=== PATIENT | male | born 1965 | race African-American/Black ===

== ENCOUNTER 2023-12-03 19:36 | Inpatient (IN) | payer SELFPAY ==
[~2023-12-03] VITALS: Ht 175.3 cm; Wt 61.7 kg
[~2023-12-03 19:36] MED LIST: ALBU18HF2 IH; FLUT1DIS3 INH; IBUP-2030 PO; P20 MT
[2023-12-03] MEDS: METHYLPREDNISOLONE SOD SUCC 125MG/2ML (ACT-O-VIAL) IV STA (20:33)
[2023-12-03 20:37] LABS: BASOPHILS % 0.6 % (0.0-2.0); CHLORIDE 110 mEq/L (98-107); EOSINOPHILS % 5.7 % (0.0-5.0); HEMATOCRIT. 33.8 % (42.0-52.0); LYMPHOCYTES % 30.4 % (20.0-50.0); MEAN CORPUSCULAR HEMOGLOBIN 31.2 pg (28.0-32.0); MEAN CORPUSCULAR HGB CONC 32.5 g/dL (31.0-37.0); MEAN CORPUSCULAR VOLUME 96.1 fL (80.0-94.0); MEAN PLATELET VOLUME 8.3 fl (7.4-10.4); MONOCYTES % 4.4 % (2.0-8.0); NEUTROPHILS % 58.9 % (40.0-76.0); PLATELET 209 x1000/uL (130-400); POTASSIUM 3.9 mEq/L (3.5-5.1); RED BLOOD CELL COUNT 3.52 mill/uL (4.7-6.1); RED CELL DISTRIBUTION WIDTH 14.7 % (11.6-14.6); SODIUM 142 mEq/L (136-145); WHITE BLOOD COUNT 5.4 x1000/uL (4.5-11.0)
[2023-12-03 20:38] LABS: CARBON DIOXIDE 28 mEq/L (21-32)
[2023-12-03 20:39] LABS: CALCIUM 8.4 mg/dL (8.7-10.4)
[2023-12-03 20:43] LABS: CREATININE 0.9 mg/dL (0.6-1.3); GLUCOSE 155 mg/dL (70-105)
[2023-12-03 20:44] LABS: UREA NITROGEN BLOOD 17 mg/dL (9-23)
[2023-12-03 20:47] LABS: TROPONIN I HIGH SENSITIVITY 75 ng/L (3.0-53)
[2023-12-03 20:54] VITALS: PULSE 91; RESP 17; O2SAT 98
[2023-12-03] MEDS: IPRATROPIUM BROMIDE (0.02%) 0.5MG/2.5ML NEB HHN STA (20:54)
[2023-12-03] MEDS: ALBUTEROL (0.083%) 2.5MG/3ML NEB HHN SCH (20:54)
[2023-12-03 22:10] VITALS: PULSE 78; RESP 15; O2SAT 97
[2023-12-03 22:44] VITALS: PULSE 104; RESP 16; O2SAT 93
[2023-12-03 22:58] LABS: TROPONIN I HIGH SENSITIVITY 92 ng/L (3.0-53)
[2023-12-04] VITALS (7 sets, daily range): BP systolic 109–135; BP diastolic 74–91; PULSE 81–99; RESP 19–21; TEMP 97–98.9
[2023-12-04] MEDS ORDERED: IPRATROPIUM/ALBUTEROL 0.5-3(2.5)MG/3ML NEB HHN PRN (01:30)
[2023-12-04] MEDS ORDERED: ACETAMINOPHEN 325MG TABLET PO PRN (01:30)
[2023-12-04] MEDS ORDERED: HYDROCODONE/ACETAMINOPHEN 5/325MG TABLET PO PRN (01:30)
[2023-12-04] MEDS ORDERED: CLONIDINE 0.1MG TABLET PO PRN (01:30)
[2023-12-04] MEDS: METHYLPREDNISOLONE SOD SUCC 40MG/ML (ACT-O-VIAL) IV SCH (02:48)
[2023-12-04 07:10] LABS: HEMATOCRIT 37.8 % (42.0-52.0); HEMOGLOBIN 12.5 g/dL (14.0-18.0); MEAN CORPUSCULAR HEMOGLOBIN 31.2 pg (28.0-32.0); MEAN CORPUSCULAR HGB CONC 33.1 g/dL (31.0-37.0); MEAN CORPUSCULAR VOLUME 94.5 fL (80.0-94.0); PLATELET 220 x1000/uL (130-400); RED CELL DISTRIBUTION WIDTH 14.6 % (11.6-14.6); WHITE BLOOD COUNT 2.8 x1000/uL (4.5-11.0)
[2023-12-04 07:16] LABS: CHLORIDE 108 mEq/L (98-107); POTASSIUM 4.4 mEq/L (3.5-5.1); SODIUM 141 mEq/L (136-145)
[2023-12-04 07:18] LABS: CALCIUM 8.9 mg/dL (8.7-10.4)
[2023-12-04 07:22] LABS: CREATININE 0.8 mg/dL (0.6-1.3); GLUCOSE 124 mg/dL (70-105)
[2023-12-04 07:23] LABS: UREA NITROGEN BLOOD 15 mg/dL (9-23)
[2023-12-04 07:28] LABS: CARBON DIOXIDE 24 mEq/L (21-32)
[2023-12-04 07:49] LABS: CREATINE KINASE MB FRACTION 6.4 ng/mL (0.5-3.6)
[2023-12-04 07:50] LABS: CREATINE KINASE 248 IU/L (46-171); TROPONIN I HIGH SENSITIVITY 50 ng/L (3.0-53)
[2023-12-04 08:06] LABS: HEPATITIS B SURFACE ANTIGEN NEGATIVE (Negative)
[2023-12-04 08:27] LABS: HEPATITIS C AB NON REACTIVE (Neg) (Negative)
[2023-12-04] MEDS: BUDESONIDE 0.5MG/2ML NEB HHN SCH (09:05)
[2023-12-04] MEDS: ASPIRIN 81MG TABLET PO SCH (09:26)
[2023-12-04] MEDS: FAMOTIDINE 20MG/2ML VIAL IV SCH (09:26)
[2023-12-04] MEDS: PANTOPRAZOLE SODIUM 40 MG/VIAL IV SCH (09:26)
[2023-12-04] MEDS: NICOTINE 14MG PATCH TD SCH (09:28)
[2023-12-04] MEDS: ENOXAPARIN 40MG/0.4ML SYR SUBCUT SCH (09:29)
[2023-12-04 09:36] LABS: FOLIC ACID (FOLATE) SERUM 17.93 ng/mL (>5.38); VITAMIN B12 SERUM 363 pg/mL (211-911)
[2023-12-04] MEDS ORDERED: NALOXONE HCL 0.4MG/ML VIAL IV PRN (12:45)
[2023-12-04] MEDS: FUROSEMIDE 40MG/4ML VIAL IVP NR (13:02)
[2023-12-04 15:37] LABS: TROPONIN I HIGH SENSITIVITY 49 ng/L (3.0-53)
[2023-12-04] MEDS: MONTELUKAST SODIUM 10MG TABLET PO SCH (17:32)
[2023-12-05] VITALS (7 sets, daily range): BP systolic 113–139; BP diastolic 74–88; PULSE 76–105; RESP 14–23; TEMP 98.1–98.7; O2SAT 94
[2023-12-05 00:32] LABS: CREATINE KINASE MB FRACTION 3.5 ng/mL (0.5-3.6)
[2023-12-05 07:09] LABS: CARBON DIOXIDE 27 mEq/L (21-32); CHLORIDE 102 mEq/L (98-107); POTASSIUM 4.4 mEq/L (3.5-5.1); SODIUM 135 mEq/L (136-145)
[2023-12-05 07:15] LABS: CREATININE 0.8 mg/dL (0.6-1.3); GLUCOSE 108 mg/dL (70-105); TRIGLYCERIDE 83 mg/dL (0-150); TROPONIN I HIGH SENSITIVITY 52 ng/L (3.0-53); UREA NITROGEN BLOOD 21 mg/dL (9-23)
[2023-12-05 07:16] LABS: LDL CHOLESTEROL 94 mg/dL (5-100)
[2023-12-05 07:17] LABS: CHOLESTEROL 162 mg/dL (<200); HDL CHOLESTEROL 51 mg/dL (>55)
[2023-12-05 07:20] LABS: BASOPHILS % 0.2 % (0.0-2.0); HEMATOCRIT. 37.2 % (42.0-52.0); HEMOGLOBIN. 12.5 g/dL (14.0-18.0); LYMPHOCYTES % 10.4 % (20.0-50.0); MEAN CORPUSCULAR HEMOGLOBIN 31.4 pg (28.0-32.0); MEAN CORPUSCULAR HGB CONC 33.7 g/dL (31.0-37.0); MEAN CORPUSCULAR VOLUME 93.3 fL (80.0-94.0); MEAN PLATELET VOLUME 9.2 fl (7.4-10.4); MONOCYTES % 2.4 % (2.0-8.0); PLATELET 221 x1000/uL (130-400); RED BLOOD CELL COUNT 3.99 mill/uL (4.7-6.1); RED CELL DISTRIBUTION WIDTH 14.4 % (11.6-14.6); WHITE BLOOD COUNT 6.7 x1000/uL (4.5-11.0)
[2023-12-05] MEDS ORDERED: FAMO20TA8 MT (09:02)
[2023-12-05] MEDS ORDERED: ALBU18HF2 IH (09:02)
[2023-12-05] MEDS ORDERED: NICO-645 TP (09:02)
[2023-12-05] MEDS ORDERED: CYAN100096 MT (09:02)
[2023-12-05] MEDS ORDERED: MED4 MT (09:02)
[2023-12-05] MEDS: CYANOCOBALAMIN 1000MCG/ML VIAL IM SCH (09:51)
[2023-12-06] MEDS ORDERED: FUROSEMIDE 20MG TABLET PO SCH (09:00)
[2023-12-06] MEDS ORDERED: LOSARTAN 25 MG TABLET PO SCH (09:00)
== END 2023-12-05 18:40 | disposition home or self-care (01) | DRG 140 ==
LOC: ER 19:36 → 3WST 22:19
PROVIDERS: ADMIT Internal Medicine; ATTEND Internal Medicine
DX: J44.1 Chronic obstructive pulmonary disease with (acute) exacerbation (principal); J96.01 Acute respiratory failure with hypoxia; M62.82 Rhabdomyolysis; I42.9 Cardiomyopathy, unspecified; J45.901 Unspecified asthma with (acute) exacerbation; J68.0 Bronchitis and pneumonitis due to chemicals, gases, fumes and vapors; T59.891A Toxic effect of other specified gases, fumes and vapors, accidental (unintentional), initial encounter; F17.210 Nicotine dependence, cigarettes, uncomplicated; F14.10 Cocaine abuse, uncomplicated; I50.9 Heart failure, unspecified; I51.7 Cardiomegaly; D53.9 Nutritional anemia, unspecified; J84.9 Interstitial pulmonary disease, unspecified; I34.0 Nonrheumatic mitral (valve) insufficiency; E53.8 Deficiency of other specified B group vitamins; Z79.51 Long term (current) use of inhaled steroids; Z79.899 Other long term (current) drug therapy; Y92.89 Other specified places as the place of occurrence of the external cause
CPT/HCPCS: 36415; 71045; 80048; 80061; 82550; 82553; 82607; 82746; 83735; 83880; 84484; 85025; 85027; 86705; 87340; 93005; 93306; 94640; 99285; C9113; J1650; J1940; J2920; J2930; J3420; J3490; J7626